=== PATIENT | female | born 1970 | race Caucasian/White ===

== ENCOUNTER 2019-06-09 13:29 | Outpatient (CLI) | payer OTHER ==
--- NOTE | 2019-06-09 14:21 | MMO ---
Bilateral MAMMO Bilat Screen [facility]. CLINICAL HISTORY: Patient is 48 years old and is seen for screening. VIEWS: The views performed were: bilateral craniocaudal with tomosynthesis and bilateral mediolateral oblique with tomosynthesis. FILMS COMPARED: The present examination has been compared to a prior imaging study performed at [facility] on 02/16/2016. This study has been interpreted with the assistance of computer-aided detection. MAMMOGRAM FINDINGS: There are scattered fibroglandular densities. Normal implants are present. There are no suspicious masses, suspicious calcifications, or new areas of architectural distortion. IMPRESSION: THERE IS NO MAMMOGRAPHIC EVIDENCE OF MALIGNANCY. A ROUTINE FOLLOW-UP MAMMOGRAM IN 1 YEAR IS RECOMMENDED. THE RESULTS OF THIS EXAM WERE SENT TO THE PATIENT. ACR BI-RADS Category 2 - Benign finding MAMMOGRAPHY NOTE: 1. A negative mammogram report should not delay a biopsy if a dominant of clinically suspicious mass is present. 2. Approximately 10% to 15% of breast cancers are not detected by mammography. 3. Adenosis and dense breasts may obscure an underlying neoplasm. Reported by: SHAMEKA AMAYA MD Electonically Signed: [id number]
== END 2019-06-09 13:30 | disposition home or self-care (01) ==
LOC: BICMAMMO 13:29
PROVIDERS: ATTEND Family Medicine
DX: Z12.31 Encounter for screening mammogram for malignant neoplasm of breast (principal); Z98.890 Other specified postprocedural states
CPT/HCPCS: 77063; 77067

== ENCOUNTER 2019-08-28 10:53 | Outpatient (CLI) | payer OTHER | END 2019-08-28 10:54 | disposition home or self-care (01) | LOC: DTY/OP 10:53 | PROVIDERS: ATTEND Family Medicine | DX: E66.01 Morbid (severe) obesity due to excess calories (principal) | CPT/HCPCS: 97802 ==

== ENCOUNTER 2019-09-29 10:00 | Outpatient (CLI) | payer OTHER | END 2019-09-29 10:01 | disposition home or self-care (01) | LOC: DTY/OP 10:00 | PROVIDERS: ATTEND Family Medicine | DX: E66.01 Morbid (severe) obesity due to excess calories (principal) | CPT/HCPCS: 97802 ==

== ENCOUNTER 2019-10-30 09:54 | Outpatient (CLI) | payer OTHER | END 2019-10-30 09:55 | disposition home or self-care (01) | LOC: DTY/OP 09:54 | PROVIDERS: ATTEND Family Medicine | DX: E66.01 Morbid (severe) obesity due to excess calories (principal) | CPT/HCPCS: 97802 ==

== ENCOUNTER 2019-11-27 09:26 | Outpatient (CLI) | payer OTHER | END 2019-11-27 09:27 | disposition home or self-care (01) | LOC: DTY/OP 09:26 | PROVIDERS: ATTEND Family Medicine | DX: E66.01 Morbid (severe) obesity due to excess calories (principal) | CPT/HCPCS: 97802 ==

== ENCOUNTER 2019-12-25 06:24 | Outpatient (CLI) | payer OTHER ==
--- NOTE | 2019-12-25 13:14 | RAD ---
EXAM: Chest PA and lateral: HISTORY: Preoperative exam. COMPARISON: 11/26/2011 FINDINGS: Heart: Normal cardiac silhouette Aorta: Unremarkable Pulmonary vessels: Normal Costophrenic angles: Costophrenic angles are clear. Lungs: No masses or consolidation. Linear densities in the mid left and right lung likely represent s ubsegmental atelectasis. Pneumothorax: No pneumothorax Osseous structures: No osseous abnormalities IMPRESSION: No acute cardiopulmonary process.
[2019-12-25 16:23] LABS: #Basophils 0.1 thou/uL (0.0-0.2); #Eosinphils 0.2 thou/uL (0.0-0.7); #Lymphocytes 2.6 thou/uL (1.20-3.40); #Monocytes 0.6 thou/uL (0.11-0.59); #Neutrophils 5.1 thou/uL (1.40-6.50); %Basophils 0.8 % (0.0-1.0); %Eosinophils 2.5 % (0.0-10.0); %Lymphocytes 30.2 % (21.0-51.0); %Monocytes 7.4 % (0.0-10.0); %Neutrophils 59.1 % (42.0-75.0); Hemoglobin 14.2 g/dL (12.0-16.0); Mean Corpuscular HGB CONC 32.8 g/dL (32.0-36.0); Mean Corpuscular Hemoglobin 31.7 pg (27.0-31.0); Mean Corpuscular Volume 96.7 fL (78.0-98.0); Mean Platelet Volume 8.3 fL (7.4-10.4); Platelet Count 288 thou/uL (130-400); RBC Distribution Width 12.6 % (11.5-14.5); Red Blood Cell (RBC) Count 4.49 mill/uL (4.20-5.40); White Blood Cell (WBC) Count 8.7 thou/uL (4.8-10.8)
[2019-12-25 17:01] LABS: ALT (SGPT) 87 U/L (8-55); AST (SGOT) 45 U/L (5-34); Albumin 4.3 g/dL (3.5-5.0); Alkaline Phosphatase 73 U/L (40-110); Anion Gap 15 mmol/L (10-20); BHCG - Serum Negative (NEGATIVE); BUN (Urea Nitrogen) 11 mg/dL (7.0-18.7); Bilirubin, Total 0.2 mg/dL (0.2-1.2); Calc. Creatinine Clearance 0 mL/min (70-130); Calcium 8.6 mg/dL (7.8-10.44); Carbon Dioxide 18 mmol/L (22-29); Chloride 110 mmol/L (98-107); Estimated GFR-MDRD 88; Globulin 2.8 g/dL (2.4-3.5); Glucose 91 mg/dL (70-105); Potassium 3.6 mmol/L (3.5-5.1); Pregs Control Background? CLEAR/WHITE (CLR/WHITE); Pregs Control Bar Appear? YES (CONTROL BAR); Protein, Total 7.1 g/dL (6.0-8.3); Sodium 139 mmol/L (136-145)
[2019-12-25 17:02] LABS: Hemoglobin A1c 5.3 % (4.0-6.0)
[2019-12-26 14:47] LABS: SARS-CoV-2 MS2 Positive; SARS-CoV-2 N Gene Negative; SARS-CoV-2 S Gene Negative; SARS-CoV-2 by NAA Not Detected (NotDetected); SARS-CoV-2 orf1ab Negative
== END 2019-12-25 06:25 | disposition home or self-care (01) ==
LOC: LABBT 06:24 → SCSRAD 06:25
PROVIDERS: ATTEND Surgery
DX: Z01.818 Encounter for other preprocedural examination (principal); E66.01 Morbid (severe) obesity due to excess calories; Z20.828 Contact with and (suspected) exposure to other viral communicable diseases
CPT/HCPCS: 71046; 80053; 83036; 84703; 85025; 87635; U0003

== ENCOUNTER 2019-12-25 12:30 | Inpatient (IN) | payer OTHER ==
[2019-12-28 15:05] VITALS: BMI 38.6
[2019-12-29] MEDS ORDERED: Bupivacaine 0.25% HCL 30 ML VIAL ONE (06:45)
[2019-12-29] MEDS ORDERED: Lidocaine 1% w/Epinephrine 1:100K 20 ML VIAL ONE (06:45)
[2019-12-29] MEDS ORDERED: Heparin 5,000 UNITS/ML VIAL ONE (07:10)
[2019-12-29] MEDS ORDERED: Fentanyl 100 MCG/2 ML VIAL ONE ×3 (08:08→10:46)
[2019-12-29] MEDS ORDERED: SUGAMMADEX SODIUM 200 MG/2 ML VIAL ONE (08:08)
[2019-12-29] MEDS ORDERED: diphenhydrAMINE 50 MG/ML VIAL IM PRN (10:30)
[2019-12-29] MEDS ORDERED: Zolpidem Tartrate 5 MG TAB PO PRN ×2 (10:30→15:05)
[2019-12-29] MEDS ORDERED: fentaNYL Citrate/PF 2,000 MCG in Sodium Chloride 0.9% 60 ML IV PRN (10:30)
[2019-12-29] MEDS ORDERED: diphenhydrAMINE 25 MG CAP PO PRN (10:30)
[2019-12-29] MEDS ORDERED: diphenhydrAMINE 50 MG/ML VIAL IVP PRN ×2 (10:30→15:05)
[2019-12-29] MEDS ORDERED: Communication Order-Pharmacy FS SCH (10:30)
[2019-12-29] MEDS ORDERED: Naloxone HCl 0.4 mg/ml Vial IV PRN (10:30)
[2019-12-29] MEDS ORDERED: Ondansetron PF 4 MG/2 ML Vial ONE ×2 (11:04→14:00)
[2019-12-29] MEDS ORDERED: Promethazine HCl 25 MG/ML VIAL ONE (11:19)
[2019-12-29] MEDS ORDERED: PROPOFOL 200 MG/20 ML VIAL ONE (14:00)
[2019-12-29] MEDS ORDERED: Lidocaine 1% PF 5 ML VIAL ONE (14:00)
[2019-12-29] MEDS ORDERED: Dexamethasone 20 MG/5 ML VIAL ONE (14:00)
[2019-12-29] MEDS ORDERED: Rocuronium Bromide 10 MG/ML (10ML VIAL) ONE (14:00)
[2019-12-29] MEDS ORDERED: D5 1/2 NS w/20 mEq KCL 1,000 ML ONE (14:51)
[2019-12-29] MEDS ORDERED: Dextrose 5% in Water 1,000 ML IV PRN (15:05)
[2019-12-29] MEDS ORDERED: Hydrocodone-Acetamin 15 ML UDCUP PO PRN (15:05)
[2019-12-29] MEDS ORDERED: Dextrose 50% Abboject 50 ML SYRINGE SLOW IVP PRN (15:05)
[2019-12-29] MEDS ORDERED: Promethazine HCl 25 MG/ML VIAL IM PRN (15:05)
[2019-12-29] MEDS ORDERED: Ondansetron PF 4 MG/2 ML Vial IVP PRN (15:05)
[2019-12-29] MEDS ORDERED: hydrALAZINE 20 MG/ML VIAL SLOW IVP PRN (15:05)
[2019-12-29] MEDS: Promethazine HCl 25 MG/ML VIAL IM PRN (15:14)
--- NOTE | 2019-12-29 15:19 | OP ---
DATE OF PROCEDURE: 12/29/2019 PREOPERATIVE DIAGNOSES: Morbid obesity, BMI of 39, hypertension, dyslipidemia. POSTOPERATIVE DIAGNOSES: Morbid obesity, BMI of 39, hypertension, dyslipidemia. PROCEDURE PERFORMED: 1. Laparoscopic sleeve gastrectomy with Ethicon staple line reinforcements and 38-Kiswahili bougie. 2. EGD. ANESTHESIA: General. ESTIMATED BLOOD LOSS: 50 mL. COMPLICATIONS: None. FINDINGS: Normal EGD. DESCRIPTION OF PROCEDURE: The patient was taken to the operating room and laid supine on the operating room table. After general anesthetic was obtained, the arms and legs were double strapped to bariatric table. OG tube was used to decompress the stomach. The abdomen was prepped and draped in a sterile fashion. Left subcostal 5 mm Optiview trocar placed in usual fashion and high-flow pneumoperitoneum was obtained. Left and right abdominal 12 mm ports as well as right subcostal 5 mm port were all placed under direct visualization. A 5 mm incision made at the xiphoid and Hugo was used to raise the liver off the GE junction. Short gastrics were taken down from midbody of stomach to left debby of diaphragm. Left debby, angle of His, posterior fundus were completely dissected. Short gastrics were taken down to a distance of 6 cm proximal to the pylorus. A 38 bougie was brought in and its tip left in the antrum of the stomach. Multiple loads of [place] stapling device with [place] staple line reinforcements were used to form the sleeve. The first was fired up at the distance of 6 cm proximal to the pylorus angled up towards the incisura. Multiple loads then fired up along the bougie. Stomach was completely transected at the angle of His. Stomach was removed from the left abdominal incision. This fascial defect was closed using GraNee needle and 0-Vicryl tie. A few bleeders on the staple line were clipped using laparoscopic clip. The bougie was removed. EGD scope was passed esophagus, stomach, to the level of duodenum without obstruction. There was no stricture at the incisura. The EGD scope was used to decompress the stomach. It was pulled and removed. Hugo retractor was removed under direct visualization without bleeding. There was no bleeding in the abdomen. All port sites were infiltrated using local anesthetic. All ports were removed under camera vision. Pneumoperitoneum was let down. Vicryl was used to close the fascial defect from the left abdominal incision. All incisions were irrigated and closed using 4-0 Monocryl and Dermabond. Patient was sent to Recovery in stable condition. All instrument counts, needle counts, lap counts were correct. Job ID: [id number]
[2019-12-29] MEDS: Ondansetron PF 4 MG/2 ML Vial IVP PRN ×2 (17:28→22:33)
[2019-12-29] MEDS: D5 1/2 NS w/20 mEq KCL 1,000 ML IV SCH ×2 (18:59→22:34)
[2019-12-29] MEDS ORDERED: Enoxaparin Sodium 40 MG/0.4 ML SYRINGE SC SCH (21:00)
[2019-12-30] MEDS: Promethazine HCl 25 MG/ML VIAL IM PRN (01:31)
[2019-12-30] MEDS: Ondansetron PF 4 MG/2 ML Vial IVP PRN ×3 (03:36→15:26)
[2019-12-30 05:26] LABS: #Eosinphils 0.1 thou/uL (0.0-0.7); #Lymphocytes 2.2 thou/uL (1.20-3.40); #Monocytes 1.3 thou/uL (0.11-0.59); #Neutrophils 8.9 thou/uL (1.40-6.50); %Basophils 0.3 % (0.0-1.0); %Eosinophils 0.6 % (0.0-10.0); %Lymphocytes 17.4 % (21.0-51.0); %Monocytes 10.3 % (0.0-10.0); %Neutrophils 71.4 % (42.0-75.0); Hemoglobin 13.3 g/dL (12.0-16.0); Mean Corpuscular HGB CONC 31.9 g/dL (32.0-36.0); Mean Corpuscular Hemoglobin 31.8 pg (27.0-31.0); Mean Corpuscular Volume 99.5 fL (78.0-98.0); Mean Platelet Volume 7.1 fL (7.4-10.4); Platelet Count 298 thou/uL (130-400); RBC Distribution Width 12.7 % (11.5-14.5); Red Blood Cell (RBC) Count 4.17 mill/uL (4.20-5.40); White Blood Cell (WBC) Count 12.4 thou/uL (4.8-10.8)
[2019-12-30 05:36] LABS: Anion Gap 14 mmol/L (10-20); BUN (Urea Nitrogen) Less than 4 mg/dL (7.0-18.7); Calc. Creatinine Clearance 165 mL/min (70-130); Carbon Dioxide 20 mmol/L (22-29); Chloride 105 mmol/L (98-107); Estimated GFR-MDRD Greater than 90; Glucose 131 mg/dL (70-105); Potassium 3.5 mmol/L (3.5-5.1); Sodium 135 mmol/L (136-145)
[2019-12-30] MEDS: D5 1/2 NS w/20 mEq KCL 1,000 ML IV SCH (06:47)
--- NOTE | 2019-12-30 08:04 | DIS ---
DATE OF ADMISSION: 12/29/2019 DATE OF DISCHARGE: 12/30/2019 ADMITTING DIAGNOSES: 1. Morbid obesity. 2. Hypertension. DISCHARGE DIAGNOSES: 1. Morbid obesity. 2. Hypertension. PROCEDURES: Laparoscopic sleeve gastrectomy by Dr. Parmar without complication. CONDITION ON DISCHARGE: Improved. STAFF: Valente Parmar MD HOSPITAL COURSE: On postop day 1, the patient is doing well. She has mild nausea, but she is tolerating a liquid. She is discharged home. She will see me back in 2 weeks. Prescriptions for Lortab Elixir, Protonix, and Zofran sent to her pharmacy. She will call me with problems. Job ID: [id number]
[2019-12-30] MEDS ORDERED: Pantoprazole 40 MG VIAL IVP SCH (09:00)
[2019-12-30] MEDS ORDERED: Nebivolol HCl 5 MG TAB PO SCH (09:00)
[2019-12-30 15:53] VITALS: BP 139/90; TEMP 98.3
== END 2019-12-30 15:35 | disposition home or self-care (01) | DRG 621 ==
LOC: SURG A 12-29 06:37 → EDSTATUS 12-29 12:30 → SURG A 12-29 15:36
PROVIDERS: ADMIT Surgery; ATTEND Surgery
PROC: 0DB64Z3 Excision of Stomach, Percutaneous Endoscopic Approach, Vertical (ICD-10-PCS; principal; 2019-12-29)
PROC: 0DJ08ZZ Inspection of Upper Intestinal Tract, Via Natural or Artificial Opening Endoscopic (ICD-10-PCS; 2019-12-29)
DX: E66.01 Morbid (severe) obesity due to excess calories (principal); I10 Essential (primary) hypertension; E78.5 Hyperlipidemia, unspecified; K21.9 Gastro-esophageal reflux disease without esophagitis; J45.909 Unspecified asthma, uncomplicated; Z68.39 Body mass index [BMI] 39.0-39.9, adult; Z79.51 Long term (current) use of inhaled steroids; Z79.899 Other long term (current) drug therapy; Z11.59 Encounter for screening for other viral diseases
CPT/HCPCS: 36415; 80048; 85025; 88307; 88312; 93005; 93010; 94760; C9113; J0690; J1100; J1644; J1650; J2405; J2550; J2704; J3010; J3480; S0020

== ENCOUNTER 2021-11-22 12:56 | Outpatient (CLI) | payer BC | END 2021-11-22 12:57 | disposition home or self-care (01) | LOC: BICMAMMO 12:56 | PROVIDERS: ATTEND Family Medicine | DX: Z12.31 Encounter for screening mammogram for malignant neoplasm of breast (principal); Z80.3 Family history of malignant neoplasm of breast; Z98.82 Breast implant status | CPT/HCPCS: 77063; 77067 ==

== ENCOUNTER 2023-09-03 11:20 | Outpatient (CLI) | payer BC | END 2023-09-03 11:21 | disposition home or self-care (01) | LOC: BICRAD 11:20 | PROVIDERS: ATTEND Family Medicine | DX: M25.562 Pain in left knee (principal) ==

== ENCOUNTER 2023-09-20 08:39 | Outpatient (CLI) | payer BC | END 2023-09-20 08:40 | disposition home or self-care (01) | LOC: BICMRI 08:39 | PROVIDERS: ATTEND Orthopaedic Surgery | DX: M23.92 Unspecified internal derangement of left knee (principal); S83.512A Sprain of anterior cruciate ligament of left knee, initial encounter; S83.282A Other tear of lateral meniscus, current injury, left knee, initial encounter; M25.462 Effusion, left knee; S80.02XA Contusion of left knee, initial encounter ==

== ENCOUNTER 2023-10-09 11:58 | Outpatient (CLI) | payer BC | END 2023-10-09 11:59 | disposition home or self-care (01) | LOC: BICMAMMO 11:58 | PROVIDERS: ATTEND Family Medicine | DX: Z12.31 Encounter for screening mammogram for malignant neoplasm of breast (principal); Z80.3 Family history of malignant neoplasm of breast; Z98.82 Breast implant status; Z98.890 Other specified postprocedural states | CPT/HCPCS: 77063; 77067 ==

== ENCOUNTER 2023-10-15 09:33 | Outpatient (CLI) | payer BC ==
[2023-10-15 10:28] LABS: #Basophils 0.04 10x3/uL (0.0-0.2); #Eosinphils 0.19 10x3/uL (0.0-0.5); #Monocytes 0.55 10x3/uL (0.0-1.1); #Neutrophils 2.56 10x3/uL (1.5-8.4); %Basophils 0.7 % (0.0-2.0); %Eosinophils 3.3 % (0.0-6.0); %Lymphocytes 41.2 % (18.0-47.0); %Monocytes 9.6 % (0.0-10.0); Hematocrit 44.3 % (34.9-44.5); Hemoglobin 15.3 g/dL (12.0-15.5); Mean Corpuscular HGB CONC 34.5 g/dL (32.0-36.0); Mean Corpuscular Hemoglobin 34.9 pg (27.0-33.0); Mean Corpuscular Volume 100.9 fL (81.6-98.3); Mean Platelet Volume 9.6 fL (7.4-10.4); Platelet Count 251 10x3/uL (150-450); RBC Distribution Width 13.1 % (11.5-14.5); Red Blood Cell (RBC) Count 4.39 10x6/uL (3.90-5.03); White Blood Cell (WBC) Count 5.7 10x3/uL (3.5-10.5)
[2023-10-15 10:58] LABS: Anion Gap 10 mmol/L (10-20); BUN (Urea Nitrogen) 9 mg/dL (9.8-20.1); Calc. Creatinine Clearance 0 mL/min (70-130); Calcium 8.9 mg/dL (7.8-10.44); Carbon Dioxide 27 mmol/L (22-29); Chloride 107 mmol/L (98-107); Estimated GFR 94; Glucose 101 mg/dL (70-105); Sodium 140 mmol/L (136-145)
== END 2023-10-15 09:34 | disposition home or self-care (01) ==
LOC: EDSEX → LABBT 09:33
PROVIDERS: ATTEND Orthopaedic Surgery
DX: Z01.818 Encounter for other preprocedural examination (principal); M23.92 Unspecified internal derangement of left knee
CPT/HCPCS: 80048; 85025; 93005; 93010